=== PATIENT | female | born 1970 | race Caucasian/White ===

== ENCOUNTER 2017-02-13 12:47 | Emergency (ER) | payer OTHER ==
[2017-02-13 13:07] VITALS: BP 148/84
--- NOTE | 2017-02-13 14:56 | UC ---
carol Thrasher Timothy, scribed for Ainsley Fontaine DO on 02/13/17 at 1313 . Palpitation/Dysrhythmia HP - HPI Summary HPI Summary: Citlalli Saldana is a 47 yo female presenting to [facility] with intermittent palpitations for several months at a time without dizziness. Pt states she drinks coffee "all day". She denies any cardiac Hx. She states her palpitations happen mostly at night, but not every night. She also notes that with the episodes she often uses the bathroom and has a lot of gas which she burps out which seems to resolve her Sx, except for last night. She notes that she has had some frontal DAVIS in the 2-3 days ago but all sx have resolved. She has also been trying to loose wt with healthyier food choices and exercise. She has lost 18 pounds in the past 2 months. She denies any other Sx including fevers, chills, eye discharge, N/V/D, abd pain. Her MHx includes migraines, appendectomy , carpal tunnel surgery. Her LNMP was in 04/2016. - History of Current Complaint Stated Complaint: CHEST COMPLAINT SOB Time Seen by Provider: 02/13/17 13:02 Hx Obtained From: Patient Hx Last Menstrual Period: april 2016 Onset/Duration: Sudden Onset, Lasting Weeks, Still Present Timing: Constant Severity Initially: Moderate Severity Currently: Moderate Pain Intensity: 1 Pain Scale Used: 0-10 Numeric Character: Irregular Aggravating Factor(s): Nothing Alleviating Factor(s): Nothing Associated Signs & Symptoms: Positive: Chest Pain, Shortness of Breath. Negative: Dizzy - Allergy/Home Medications Allergies/Adverse Reactions: Allergies Allergy/AdvReac Type Severity Reaction Status Date / Time No Known Allergies Allergy Verified 02/13/17 13:07 PMH/Surg Hx/FS Hx/Imm Hx Previously Healthy: Yes Neurological History: Migraine - Surgical History Surgical History: Yes Surgery Procedure, Year, and Place: APPENDECTOMY, CARPAL TUNNEL - Family History Known Family History: Positive: Cardiac Disease - AFib, Other - pulmonary fibrosis, lung CA, alzheimer's disease - Social History Lives: With Family Alcohol Use: Rare Substance Use Type: None Smoking Status (MU): Never Smoked Tobacco Have You Smoked in the Last Year: No Review of Systems Constitutional: Negative Skin: Negative Eyes: Negative ENT: Negative Respiratory: Negative Cardiovascular: Palpitations Gastrointestinal: Negative Genitourinary: Negative Motor: Negative Neurovascular: Negative Musculoskeletal: Negative Neurological: Headache Psychological: Negative All Other Systems Reviewed And Are Negative: Yes Physical Exam Triage Information Reviewed: Yes Appearance: Well-Appearing, No Pain Distress, Well-Nourished Vital Signs: Initial Vital Signs Temp 98.7 F 02/13/17 13:01 Pulse 55 02/13/17 13:01 Resp 20 02/13/17 13:01 BP 148/84 02/13/17 13:01 Pulse Ox 99 02/13/17 13:01 Vital Signs Reviewed: Yes Eyes: Positive: Conjunctiva Clear. Negative: Discharge ENT Exam: Normal ENT: Positive: Hearing grossly normal. Negative: Muffled/hoarse voice Neck exam: Normal Neck: Positive: Supple Respiratory: Positive: Lungs clear, Normal breath sounds, No respiratory distress Cardiovascular: Positive: No Murmur, Pulses Normal, Brisk Capillary Refill, Bradycardia - sinus Musculoskeletal Exam: Normal Musculoskeletal: Positive: Strength Intact, ROM Intact Neurological: Positive: Alert, Muscle Tone Normal Psychological Exam: Normal Psychological: Positive: Age Appropriate Behavior Skin Exam: Normal Skin: Positive: Other - warm, dry, normal color. Negative: rashes Diagnostics - EKG Cardiac Rate: Bradycardia - 1251: Sinus bradycardia @ 54 BPM, no ST changes Palpitations Course/Dx - Course Course Of Treatment: Citlalli Saldana is a 47 yo female presenting to [facility] with 1/ 10 CP, SOB, and palpitations with Hx of the same for several months at a time. Pt medication list reviewed this visit. Her EKG suggests sinus bradycardia with no ST changes. Note her high BP of 148/84. After clinical examination she will be discharged home with palpitations with appropriate instructions and follow up. - Differential Dx/Diagnosis Differential Diagnosis/HQI/PQRI: Panic Disorder, Paroxymal SVT, Other - palpitations Provider Diagnoses: palpitations Discharge - Discharge Plan Condition: Stable Disposition: HOME Patient Education Materials: Palpitations (ED) Referrals: [facility] [Outside] - 2 Days Jeanne Acuna MD [Medical Doctor] - 2 Days Hawk Bryant MD [Medical Doctor] - 2 Days Additional Instructions: Please follow up with the primary care physician and the senior energy trader provided regarding your visit to urgent care today. Your blood pressure today was 148/84 which is high for your age group, so please follow up with your new primary care physician. Return to urgent care or the emergency department with any new or recurring symptoms. The documentation as recorded by the carol james Timothy accurately reflects the service I personally performed and the decisions made by me, Ainsley Fontaine DO.
== END 2017-02-13 13:51 | disposition home or self-care (01) ==
LOC: UCEAST 12:47
DX: R00.2 Palpitations (principal)
CPT/HCPCS: 93005; 99211; G0463

== ENCOUNTER 2017-03-25 01:13 | Emergency (ER) | payer OTHER ==
--- NOTE | 2017-03-25 02:03 | ED ---
Leon Thrasher Rebecca, scribed for Simba Gannon MD on 03/25/17 at 0143 . Palpitations / Dysrhythmia - HPI Summary HPI Summary: Pt is a 47 y/o F who presents to ED c/o palpitations characterized as fast. 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 Episode lasted less than 1 minute and is currently resolved. Pt reports burping which alleviated sx. Denies any pain or SOB during the pain. Notes intermittent episodes of palpitations that previously occurred once every day but in the last few days they have become less recurrent. No recent changes in caffeine, though reports a recent increase in the pt's stress. - History of Current Complaint Chief Complaint: EDDysrhythmPalp Time Seen by Provider: 03/25/17 01:23 Hx Obtained From: Patient Onset/Duration: Lasting Minutes - Less than 1 minute, Resolved Severity Currently: None Character: Fast Aggravating: Nothing - Allergy/Home Medications Allergies/Adverse Reactions: Allergies Allergy/AdvReac Type Severity Reaction Status Date / Time No Known Allergies Allergy Verified 02/13/17 13:07 PMH/Surg Hx/FS Hx/Imm Hx Endocrine/Hematology History: Denies: Hx Diabetes, Hx Thyroid Disease Cardiovascular History: Denies: Hx Hypertension Respiratory History: Denies: Hx Asthma, Hx Chronic Obstructive Pulmonary Disease (COPD) GI History: Denies: Hx Ulcer - Surgical History Surgery Procedure, Year, and Place: APPENDECTOMY, CARPAL TUNNEL Infectious Disease History: No Infectious Disease History: Denies: Hx Hepatitis, Hx Human Immunodeficiency Virus (HIV), History Other Infectious Disease, Traveled Outside the [place] in Last 30 Days - Family History Known Family History: Positive: Cardiac Disease - AFib, Other - pulmonary fibrosis, lung CA, alzheimer's disease - Social History Alcohol Use: Rare Substance Use Type: Reports: None Smoking Status (MU): Never Smoked Tobacco Have You Smoked in the Last Year: No Review of Systems Positive: Palpitations - resolved Negative: Shortness Of Breath Positive: Other - NEGATIVE: any pain All Other Systems Reviewed And Are Negative: Yes Physical Exam Triage Information Reviewed: Yes Vital Signs On Initial Exam: Initial Vitals Temp Pulse Resp BP Pulse Ox 97 F 78 16 147/84 100 03/25/17 01:14 03/25/17 01:14 03/25/17 01:14 03/25/17 01:14 03/25/17 01:14 Vital Signs Reviewed: Yes Appearance: Positive: Well-Appearing, Well-Nourished Skin: Positive: Warm Head/Face: Positive: Normal Head/Face Inspection ENT: Positive: Hearing grossly normal Neck: Positive: Supple Respiratory/Lung Sounds: Positive: Breath Sounds Present Cardiovascular: Positive: RRR. Negative: Murmur Abdomen Description: Positive: Nontender, Soft Bowel Sounds: Positive: Present Neurological: Positive: Alert, Oriented to Person Place, Time Psychiatric: Positive: Affect/Mood Appropriate Diagnostics - Vital Signs Vital Signs Temp Pulse Resp BP Pulse Ox 03/25/17 01:14 97 F 78 16 147/84 100 - Laboratory Result Diagrams: 03/25/17 02:00 03/25/17 02:00 Lab Statement: Any lab studies that have been ordered have been reviewed, and results considered in the medical decision making process. - Radiology CXR Xray Interpretation: No Acute Changes Radiology Interpretation Completed By: ED Physician - EKG 0253 Cardiac Rate: NL - 64 bpm EKG Rhythm: Sinus Rhythm EKG Interpretation: No acute changes Re-Evaluation - Re-Evaluation First Eval Change: Improved - results d/w pt Course/Dx - Course Assessment/Plan: Pt is a 47 y/o F who presents to ED c/o palpitations characterized as fast. 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 Episode lasted less than 1 minute and is currently resolved. Pt reports burping which alleviated sx. Denies any pain or SOB during the pain. Notes intermittent episodes of palpitations that previously occurred once every day but in the last few days they have become less recurrent. No recent changes in caffeine, though reports a recent increase in the pt's stress. CXR is negative as read by ED physician. EKG is sinus rhythm with no acute changes. Troponin of 0.01. Pt will be D/C to home with palpitations and a follow up with her PCP. She understands and agrees. Elevated BP noted and advised to f/u with PCP. - Diagnoses Provider Diagnoses: Palpitations Discharge - Discharge Plan Condition: Stable Disposition: HOME Patient Education Materials: Palpitations (ED) Referrals: Genevieve Gordillo NP [Primary Care Provider] - 2 Days The documentation as recorded by the scribeLeon Rebecca accurately reflects the service I personally performed and the decisions made by me, Simba Gannon MD.
[2017-03-25 02:14] LABS: Hematocrit 41 % (35-47); Hemoglobin 13.6 g/dl (12.0-16.0); Mean Corpuscular HGB Conc 33 g/dl (31-36); Mean Corpuscular Hemoglobin 29 pg (27-31); Mean Corpuscular Volume 87 fL (80-97); Mean Platelet Volume 8 um3 (7.4-10.4); Red Blood Count 4.64 10^6/ul (4.0-5.4); Red Cell Distribution Width 13 % (10.5-15); White Blood Count 8.2 10^3/ul (3.5-10.8)
[2017-03-25 02:26] LABS: Albumin 4.5 g/dL (3.2-5.2); BUN/Creatinine Ratio 35.5 (8-20); Calcium 9.3 mg/dL (8.6-10.3); EGFR African American 105.8 (>60); EGFR Non-African American 82.3 (>60); Globulin 2.5 g/dL (2-4); Potassium 3.2 mmol/L (3.5-5.0); Total Bilirubin 0.5 mg/dL (0.2-1.0)
[2017-03-25 02:29] LABS: Troponin I 0.01 ng/mL (<0.04)
[2017-03-25 03:10] VITALS: BP 115/61
[2017-03-25 03:10] LABS: TSH (Thyroid Stimulating Horm) 3.41 mcIU/mL (0.34-5.60)
--- NOTE | 2017-03-25 07:39 | RAD ---
INDICATION: Palpitations. COMPARISON: There are no prior studies available for comparison. TECHNIQUE: Dual-energy PA and lateral views of the chest were obtained. FINDINGS: The heart is within normal limits in size. Mediastinal and hilar contours appear within normal limits. The lungs are clear. No pleural effusion is present. IMPRESSION: NO EVIDENCE FOR ACTIVE CARDIOPULMONARY DISEASE.
== END 2017-03-25 03:17 | disposition home or self-care (01) ==
LOC: ED 01:13
DX: R00.2 Palpitations (principal)
CPT/HCPCS: 36415; 71020; 80053; 83605; 83735; 84443; 84484; 84702; 85025; 93005; 99282

== ENCOUNTER 2017-03-28 14:03 | Emergency (ER) | payer OTHER ==
[2017-03-28 14:18] VITALS: BP 133/77
--- NOTE | 2017-03-28 15:10 | UC ---
Skin Complaint HPI - HPI Summary HPI Summary: 47 y/o female with increase stress recently and GI bug noticed past 2 days neuropathy down R leg x 24 hours, resolved now with increased sensation/ pain over R flank radiationg to right abdomen, noted small robles over right spine this AM, concnered about shingles. no prior history, no meds. no PMH. + chicken pox as child. 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 Hx Last Menstrual Period: tubal ?: No Onset/Duration: Sudden Onset, Lasting Days Onset Severity: Mild Current Severity: Mild - Allergy/Home Medications Allergies/Adverse Reactions: Allergies Allergy/AdvReac Type Severity Reaction Status Date / Time No Known Allergies Allergy Verified 03/28/17 14:17 Review of Systems Skin: Rash Musculoskeletal: Arthralgia All Other Systems Reviewed And Are Negative: Yes PMH/Surg Hx/FS Hx/Imm Hx Previously Healthy: Yes - Surgical History Surgical History: Yes Surgery Procedure, Year, and Place: APPENDECTOMY, CARPAL TUNNEL - Family History Known Family History: Positive: None, Cardiac Disease - AFib, Other - pulmonary fibrosis, lung CA, alzheimer's disease - Social History Alcohol Use: None Substance Use Type: None Smoking Status (MU): Never Smoked Tobacco Have You Smoked in the Last Year: No Physical Exam Triage Information Reviewed: Yes Appearance: Well-Appearing, No Pain Distress, Well-Nourished Vital Signs: Initial Vital Signs Temp 99.1 F 03/28/17 14:11 Pulse 68 03/28/17 14:11 Resp 16 03/28/17 14:11 BP 133/77 03/28/17 14:11 Pulse Ox 99 03/28/17 14:11 Vital Signs Reviewed: Yes Abdomen Description: Positive: No Organomegaly, Soft, Other: - tenderness extending in band region from ~ l1 region to umbilcal region with small vesiclar lesions near spine on R dotting through abdomen in band like distribution, + mild erythema. Course/Dx - Course Course Of Treatment: herpes zoster, antiviral given, f/u with PCP avoid contact with immunocompromised patients. - Differential Diagnoses - Skin Complaint Differential Diagnoses: Angioedema, Cellulitis, Contact Dermatitis, Drug Rash, Poison Silvina, Urticaria - Diagnoses Provider Diagnoses: herpes zoster Discharge - Discharge Plan Condition: Stable Disposition: HOME Prescriptions: ValACYclovir (*) [Valtrex 1 GM(*)] 1 gm PO TID #21 tab Patient Education Materials: Shingles (ED), Valacyclovir (By mouth) Referrals: Gneevieve Gordillo NP [Primary Care Provider] - Additional Instructions: - Avoid women, babies, and immunocompromised people. - Take antiviral medication as directed - Cover areas while working/ exposed to people. - Follow up with PCP with increased symptoms - Motrin/ Tylenol as needed for pain
== END 2017-03-28 15:17 | disposition home or self-care (01) ==
LOC: UCEAST 14:03
DX: B02.9 Zoster without complications (principal)
CPT/HCPCS: 99212; G0463

== ENCOUNTER 2017-10-07 09:07 | Emergency (ER) | payer BC, OTHER ==
[2017-10-07 09:25] VITALS: BP 140/91
--- NOTE | 2017-10-07 09:42 | UC ---
FLU HPI - HPI Summary HPI Summary: c/o flu like symptoms with fever, chills,malaise and dry cough for the past 2 days. She states she also had burping and some constipation the day the symptoms began. Denies nausea or vomiting. LMD may 2016, denies hot flashes - History of Current Complaint Stated Complaint: FLU SYMPTOMS Time Seen by Provider: 10/07/17 09:15 Hx Last Menstrual Period: tubal - Allergy/Home Medications Allergies/Adverse Reactions: Allergies Allergy/AdvReac Type Severity Reaction Status Date / Time No Known Allergies Allergy Verified 10/07/17 09:25 Home Medications: Home Medications Ibuprofen 400 mg PO Q6H PRN 10/07/17 [History Confirmed 10/07/17] PMH/Surg Hx/FS Hx/Imm Hx Previously Healthy: Yes - Surgical History Surgical History: Yes Surgery Procedure, Year, and Place: APPENDECTOMY, CARPAL TUNNEL - Family History Known Family History: Positive: None, Cardiac Disease - AFib, Other - pulmonary fibrosis, lung CA, alzheimer's disease - Social History Alcohol Use: None Substance Use Type: None Smoking Status (MU): Never Smoked Tobacco Have You Smoked in the Last Year: No Review of Systems Constitutional: Fever, Chills, Fatigue Respiratory: Cough All Other Systems Reviewed And Are Negative: Yes Physical Exam Triage Information Reviewed: Yes Appearance: Ill-Appearing, Obese Vital Signs Reviewed: Yes Eyes: Positive: Conjunctiva Clear ENT: Positive: Hearing grossly normal, Pharynx normal, TMs normal, Uvula midline Neck exam: Normal Neck: Positive: Supple, Nontender, No Lymphadenopathy Respiratory: Positive: Chest non-tender, Lungs clear, Normal breath sounds, No respiratory distress Cardiovascular: Positive: RRR, No Murmur, Pulses Normal, Brisk Capillary Refill Abdomen Description: Positive: Nontender Bowel Sounds: Positive: Present Flu Course/Dx - Course Course Of Treatment: continue rest and oral hydration, tylenol prn. D/w patient negative results of influenza test. Patient's partner states he has pantoprazole 20mg and colace at home. f/u PCP - Differential Dx/Diagnosis Provider Diagnoses: viral URI Discharge - Discharge Plan Condition: Stable Disposition: HOME Patient Education Materials: Viral Syndrome (ED) Referrals: Genevieve Gordillo NP [Primary Care Provider] -
== END 2017-10-07 10:09 | disposition home or self-care (01) ==
LOC: UCEAST 09:07
DX: J06.9 Acute upper respiratory infection, unspecified (principal)
CPT/HCPCS: 87502; 99212; G0463

== ENCOUNTER 2017-10-25 22:14 | Emergency (ER) | payer BC, OTHER ==
[2017-10-25 22:56] LABS: ABS Basophils 0.1 10^3/ul (0-0.2); ABS Eosinophils 0.1 10^3/ul (0-0.6); ABS Lymphocytes 2.2 10^3/ul (1.0-4.8); ABS Monocytes 0.8 10^3/ul (0-0.8); ABS Neutrophils 5.6 10^3/ul (1.5-7.7); ABS Nucleated RBC 0 10^3/ul; Eosinophil % 1.4 % (0-6); Hematocrit 40 % (35-47); Hemoglobin 13.5 g/dl (12.0-16.0); Lymphocyte % 25.6 % (25-47); Mean Corpuscular HGB Conc 34 g/dl (31-36); Mean Corpuscular Hemoglobin 30 pg (27-31); Mean Corpuscular Volume 87 fL (80-97); Mean Platelet Volume 8.3 um3 (7.4-10.4); Nucleated Red Blood Cells % 0; Platelet Count 268 10^3/ul (150-450); Red Blood Count 4.54 10^6/ul (4.0-5.4); Red Cell Distribution Width 13 % (10.5-15); White Blood Count 8.7 10^3/ul (3.5-10.8)
[2017-10-25 23:16] LABS: EGFR Non-African American 78.7 (>60)
--- NOTE | 2017-10-25 23:32 | ED ---
Palpitations / Dysrhythmia - HPI Summary HPI Summary: 47-year-old female presents with heart palpitations after going up stairs today. She was very anxious at the time. Shortness breath with the. She denies any chest pain. She states that she has a history of this and normally when she burps the palpitations go away. States she tried burping and it did not resolve the palpitations. She states she has had a Holter monitor last week and it was normal. She states that her primary has scheduled an echo. She states what was different about this episode is it was not relieved with burping. She denies any palpitations at this time. She denies any bowel pain, nausea or vomiting. She has been on ranitidine for the past week and has noticed some improvement. Patient states that she has had an abnormal work scheduled for the past year and that has really caused increase stress. - History of Current Complaint Chief Complaint: EDDysrhythmPalp Time Seen by Provider: 10/25/17 22:31 - Allergy/Home Medications Allergies/Adverse Reactions: Allergies Allergy/AdvReac Type Severity Reaction Status Date / Time No Known Allergies Allergy Verified 10/25/17 22:20 Home Medications: Home Medications Ranitidine TAB (NF) [Zantac TAB (NF)] 150 mg PO BID 10/25/17 [History Confirmed 10/25/17] PMH/Surg Hx/FS Hx/Imm Hx Endocrine/Hematology History: Denies: Hx Diabetes, Hx Thyroid Disease Cardiovascular History: Denies: Hx Hypertension Respiratory History: Denies: Hx Asthma, Hx Chronic Obstructive Pulmonary Disease (COPD) GI History: Denies: Hx Ulcer - Surgical History Surgery Procedure, Year, and Place: APPENDECTOMY, CARPAL TUNNEL - Immunization History Date of Tetanus Vaccine: utd Date of Influenza Vaccine: none Infectious Disease History: No Infectious Disease History: Reports: Hx Shingles Denies: Hx Hepatitis, Hx Human Immunodeficiency Virus (HIV), History Other Infectious Disease, Traveled Outside the [place] in Last 30 Days - Family History Known Family History: Positive: None, Cardiac Disease - AFib, Other - pulmonary fibrosis, lung CA, alzheimer's disease - Social History Alcohol Use: None Substance Use Type: Reports: None Smoking Status (MU): Former Smoker Have You Smoked in the Last Year: No Review of Systems Negative: Fever Positive: Palpitations. Negative: Chest Pain Positive: Shortness Of Breath. Negative: Cough All Other Systems Reviewed And Are Negative: Yes Physical Exam Triage Information Reviewed: Yes Vital Signs On Initial Exam: Initial Vitals Temp Pulse Resp BP Pulse Ox 98.8 F 80 16 155/88 100 10/25/17 22:16 10/25/17 22:16 10/25/17 22:16 10/25/17 22:16 10/25/17 22:16 Vital Signs Reviewed: Yes Appearance: Positive: Well-Appearing Skin: Positive: Warm, Dry Head/Face: Positive: Normal Head/Face Inspection Eyes: Positive: Normal, EOMI, OMAIRA, Conjunctiva Clear ENT: Positive: Normal ENT inspection, Pharynx normal, TMs normal Respiratory/Lung Sounds: Positive: Clear to Auscultation, Breath Sounds Present Cardiovascular: Positive: Normal, RRR Abdomen Description: Positive: Nontender, Soft Bowel Sounds: Positive: Present Musculoskeletal: Positive: Normal Neurological: Positive: Normal Psychiatric: Positive: Normal Diagnostics - Vital Signs Vital Signs Temp Pulse Resp BP Pulse Ox 10/25/17 22:32 75 10 99 10/25/17 22:31 151/83 10/25/17 22:16 98.8 F 80 16 155/88 100 - Laboratory Lab Results: Lab Results 10/25/17 10/25/17 10/25/17 Range/Units 22:40 22:40 22:40 WBC 8.7 (3.5-10.8) 10^3/ul RBC 4.54 (4.0-5.4) 10^6/ul Hgb 13.5 (12.0-16.0) g/dl Hct 40 (35-47) % MCV 87 (80-97) fL MCH 30 (27-31) pg MCHC 34 (31-36) g/dl RDW 13 (10.5-15) % Plt Count 268 (150-450) 10^3/ul MPV 8.3 (7.4-10.4) um3 Neut % (Auto) 63.6 (38-83) % Lymph % (Auto) 25.6 (25-47) % Jefferson % (Auto) 8.6 H (0-7) % Eos % (Auto) 1.4 (0-6) % Baso % (Auto) 0.8 (0-2) % Absolute Neuts (auto) 5.6 (1.5-7.7) 10^3/ul Absolute Lymphs (auto) 2.2 (1.0-4.8) 10^3/ul Absolute Monos (auto) 0.8 (0-0.8) 10^3/ul Absolute Eos (auto) 0.1 (0-0.6) 10^3/ul Absolute Basos (auto) 0.1 (0-0.2) 10^3/ul Absolute Nucleated RBC 0 10^3/ul Nucleated RBC % 0 D-Dimer, Quantitative (Less Than 230) ng/mL Sodium 139 (139-145) mmol/L Potassium 3.7 (3.5-5.0) mmol/L Chloride 102 (101-111) mmol/L Carbon Dioxide 30 (22-32) mmol/L Anion Gap 7 (2-11) mmol/L BUN 21 (6-24) mg/dL Creatinine 0.79 (0.51-0.95) mg/dL Est GFR ( Amer) 101.2 (>60) Est GFR (Non-Af Amer) 78.7 (>60) BUN/Creatinine Ratio 26.6 H (8-20) Glucose 99 (70-100) mg/dL Calcium 9.6 (8.6-10.3) mg/dL Magnesium 2.2 (1.9-2.7) mg/dL Total Bilirubin 0.40 (0.2-1.0) mg/dL AST 12 L (13-39) U/L ALT 10 (7-52) U/L Alkaline Phosphatase 84 (34-104) U/L Troponin I 0.00 (<0.04) ng/mL B-Natriuretic Peptide 20 ( - 100) pg/mL Total Protein 7.1 (6.4-8.9) g/dL Albumin 4.5 (3.2-5.2) g/dL Globulin 2.6 (2-4) g/dL Albumin/Globulin Ratio 1.7 (1-3) TSH Pending Beta HCG, Quant 2.88 mIU/mL 10/25/17 Range/Units 22:40 WBC (3.5-10.8) 10^3/ul RBC (4.0-5.4) 10^6/ul Hgb (12.0-16.0) g/dl Hct (35-47) % MCV (80-97) fL MCH (27-31) pg MCHC (31-36) g/dl RDW (10.5-15) % Plt Count (150-450) 10^3/ul MPV (7.4-10.4) um3 Neut % (Auto) (38-83) % Lymph % (Auto) (25-47) % Jefferson % (Auto) (0-7) % Eos % (Auto) (0-6) % Baso % (Auto) (0-2) % Absolute Neuts (auto) (1.5-7.7) 10^3/ul Absolute Lymphs (auto) (1.0-4.8) 10^3/ul Absolute Monos (auto) (0-0.8) 10^3/ul Absolute Eos (auto) (0-0.6) 10^3/ul Absolute Basos (auto) (0-0.2) 10^3/ul Absolute Nucleated RBC 10^3/ul Nucleated RBC % D-Dimer, Quantitative 226 (Less Than 230) ng/mL Sodium (139-145) mmol/L Potassium (3.5-5.0) mmol/L Chloride (101-111) mmol/L Carbon Dioxide (22-32) mmol/L Anion Gap (2-11) mmol/L BUN (6-24) mg/dL Creatinine (0.51-0.95) mg/dL Est GFR ( Amer) (>60) Est GFR (Non-Af Amer) (>60) BUN/Creatinine Ratio (8-20) Glucose (70-100) mg/dL Calcium (8.6-10.3) mg/dL Magnesium (1.9-2.7) mg/dL Total Bilirubin (0.2-1.0) mg/dL AST (13-39) U/L ALT (7-52) U/L Alkaline Phosphatase (34-104) U/L Troponin I (<0.04) ng/mL B-Natriuretic Peptide ( - 100) pg/mL Total Protein (6.4-8.9) g/dL Albumin (3.2-5.2) g/dL Globulin (2-4) g/dL Albumin/Globulin Ratio (1-3) TSH Beta HCG, Quant mIU/mL Result Diagrams: 10/25/17 22:40 10/25/17 22:40 Lab Statement: Any lab studies that have been ordered have been reviewed, and results considered in the medical decision making process. - Radiology chest Xray Interpretation: No Acute Changes Radiology Interpretation Completed By: ED Physician - EKG No standard instances Cardiac Rate: NL EKG Rhythm: Sinus Rhythm EKG Interpretation: normal sinus rhythm Re-Evaluation - Re-Evaluation First Eval Re-Evaluation Time: 00:35 Change: Improved Comment: no longer anxious and no palpitations Course/Dx - Course Course Of Treatment: 47-year-old female presents with heart palpitations after going up stairs today. She was very anxious at the time. Shortness breath with the. She denies any chest pain. She states that she has a history of this and normally when she burps the palpitations go away. States she tried burping and it did not resolve the palpitations. She states she has had a Holter monitor last week and it was normal. She states that her primary has scheduled an echo. She states what was different about this episode is it was not relieved with burping. She denies any palpitations at this time. She denies any bowel pain, nausea or vomiting. She has been on ranitidine for the past week and has noticed some improvement. On exam lungs clear to auscultation. Heart regular rhythm. EKG normal. Chest x-ray normal. labs wnl. Will have continue to follow up with primary. will have follow up with primary about blood pressure. Patient understands agrees with plan. - Diagnoses Differential Diagnosis/HQI/PQRI: Positive: Hypokalemia, Panic Disorder, Pulmonary Embolism Provider Diagnoses: Palpitation, Elevated blood pressure reading Discharge - Sign-Out/Discharge Documenting (check all that apply): Discharge - Discharge Plan Condition: Good Disposition: HOME Patient Education Materials: Heart Palpitations (ED) Referrals: Belem Garces MD [Primary Care Provider] - Additional Instructions: Follow up with primary within 5 days Return to ED if develop any new or worsening symptoms - Billing Disposition and Condition Condition: GOOD Disposition: HOME
[2017-10-25] MEDS ORDERED: Al Hydrox/Mg Hydrox/Simet LIQ* 30 ML UDC PO ONE (23:53)
[2017-10-26 00:48] VITALS: BP 139/77
--- NOTE | 2017-10-26 07:13 | RAD ---
INDICATION: Palpitations. COMPARISON: Comparison is made with prior study from March 25, 2017. TECHNIQUE: Dual-energy PA and lateral views of the chest were obtained. FINDINGS: The heart is within normal limits in size. Mediastinal and hilar contours appear within normal limits. The lungs are clear. No pleural effusion is present. IMPRESSION: NO EVIDENCE FOR ACTIVE CARDIOPULMONARY DISEASE.
== END 2017-10-26 00:48 | disposition home or self-care (01) ==
LOC: ED 22:14
DX: R00.2 Palpitations (principal); Z87.891 Personal history of nicotine dependence; R06.02 Shortness of breath; R03.0 Elevated blood-pressure reading, without diagnosis of hypertension
CPT/HCPCS: 36415; 71046; 80053; 83735; 83880; 84443; 84484; 84702; 85025; 85379; 93005; 99282; A9270-GY

== ENCOUNTER 2018-01-01 11:28 | Emergency (ER) | payer BC, MEDICAID ==
[2018-01-01 11:53] VITALS: BP 159/77
--- NOTE | 2018-01-01 12:28 | UC ---
Complaint Female HPI - HPI Summary HPI Summary: 47 y/o female presents to the urgent care c/o vaginal spotting that started Last Monday12/29/2017. Pt reports she after she goes to the bathroom she wipes herself and see mild pink color in the toilet paper. Pt reports LMP was on 05/2016. She is not sure if this is her menstrual cycle since she though she was menopausal. Last time seen [facility] was in 2014. Pt states mild cramping pelvic pressure and feels her breast tender and feels engorged. Pt denies fever, abdominal pain, SOB, chest pain, N/V/D, Hx of STDs'. Last PAP was 2014 and negative. - History Of Current Complaint Chief Complaint: UCGeneralIllness Stated Complaint: VAGINAL SPOTTING Time Seen by Provider: 01/01/18 12:26 Hx Obtained From: Patient Hx Last Menstrual Period: may 2016 ?: No - Hx of B/L tubal ligation Onset/Duration: Gradual Onset, Lasting Days - 3 days, Still Present Timing: Constant Severity Initially: Mild Severity Currently: Mild Pain Intensity: 0 Pain Scale Used: 0-10 Numeric Character: Cramping - pelvic pressure Aggravating Factor(s): Nothing Alleviating Factor(s): Nothing Associated Signs And Symptoms: Positive: Vaginal Bleeding/Discharge. Negative: Fever, Back Pain, Nausea, Vomiting(# Of Episodes =), Genital Swelling, Genital Blisters Related Hx: - 4, Para - 3 abortions 1 - Risk Factors Ectopic Risk Factor: Negative Ovarian Torsion Risk Factor: Tubal Ligation - Allergies/Home Medications Allergies/Adverse Reactions: Allergies Allergy/AdvReac Type Severity Reaction Status Date / Time No Known Allergies Allergy Verified 01/01/18 11:54 Home Medications: Home Medications NK [No Home Medications Reported] 01/01/18 [History Confirmed 01/01/18] PMH/Surg Hx/FS Hx/Imm Hx Previously Healthy: Yes - Pt denies PMHX - Surgical History Surgical History: Yes Surgery Procedure, Year, and Place: APPENDECTOMY, CARPAL TUNNEL - Family History Known Family History: Positive: Cardiac Disease - AFib, Other - pulmonary fibrosis, lung CA, alzheimer's disease - Social History Occupation: Employed Full-time Lives: With Family Alcohol Use: None Substance Use Type: None Smoking Status (MU): Former Smoker Have You Smoked in the Last Year: No Review of Systems Constitutional: Negative Skin: Negative Eyes: Negative ENT: Negative Respiratory: Negative Cardiovascular: Negative Gastrointestinal: Negative Genitourinary: Abnormal Bleeding Motor: Negative Neurovascular: Negative Musculoskeletal: Negative Neurological: Negative Psychological: Negative Is Patient Immunocompromised?: No All Other Systems Reviewed And Are Negative: Yes Physical Exam - Summary Physical Exam Summary: Vital signs: reviewed General: well developed, well nourished female sitting in the examining table w /o any acute distress. Head: Normocephalic, no lesions. Eyes: PERRLA, EOM's full, conjunctiva clear, fundi grossly normal. Ears: EAC's clear, TM's normal. Nose: Mucosa normal, no obstruction. Throat: Clear, no exudates, no lesions. Neck: Supple, no masses, no thyromegaly, no bruits. Chest: Lungs clear, no rales, no rhonchi, no wheezes. Heart: RR, no murmurs, no rubs, no gallops. Abdomen: Soft, no tenderness, no masses, BS normal. : Normal, no lesions, no discharge, no hernias noted. Pelvic: I was assisted by nurse Lolita. External genitalia within normal limits. There is no lesions there is no masses noted. Speculum exam: The vaginal winslow are within normal limits w/ mild vaginal bleeding, no the lesions or rashes. The cervix is closed with no lesions or masses and mild uterine bleeding coming out of the os. There is no CMT's, and no adnexal masses. Rectal: No lesions, no hemorrhoids, Back: Normal curvature, no tenderness. Extremities: FROM, no deformities, no edema, no erythema. Neuro: Physiological, no localizing findings. Skin: Normal, no rashes, no lesions noted. Triage Information Reviewed: Yes Vital Signs: Initial Vital Signs Temp 98.7 F 01/01/18 11:50 Pulse 62 01/01/18 11:50 Resp 16 01/01/18 11:50 BP 159/77 01/01/18 11:50 Pulse Ox 98 01/01/18 11:50 Complaint Female Dx - Course Course Of Treatment: 47 y/o female presents to the urgent care c/o vaginal spotting that started Last Monday12/29/2017. Pt reports she after she goes to the bathroom she wipes herself and see mild pink color in the toilet paper. Pt reports LMP was on 05/2016. She is not sure if this is her menstrual cycle since she though she was menopausal. Last time seen [facility] was in 2014. Pt states mild cramping pelvic pressure and feels her breast tender and feels engorged. Pt denies fever, abdominal pain, SOB, chest pain, N/V/D, Hx of STDs'. Last PAP was 2014 and negative. Pelvic examination done and it is probably that Pt is w/ her menses on examination. UA and ordered. UA: negative , test: negative. Pt probably w/ Dysfunctional uterine bleeding and needs hormal testing and pelvic US. Pt advised this is probably her menses and given a referal w/ [facility] DR Eng for further management. Pt was educated on Dysfunctional uterine bleeding. D/C instructions explained. Pt's BP is elevated today advised to decrease salt in diet, monitor BP and f/u with PCP for further management. Pt understood and agreed w/ plan of care. Pt left the clinic hemodynamically stable A&OX3. - Differential Dx/Diagnosis Differential Diagnosis/HQI/PQRI: Cervicitis, Endometriosis, Pelvic Inflammatory Disease, , Renal Colic, Urinary Tract Infection, Other - Dysfunctional uterirne bleeding Provider Diagnoses: 1- Dysfunctional utrine bleeding. 2- Elevated BP w/o Hx of HTN Discharge - Sign-Out/Discharge Documenting (check all that apply): Discharge/Admit/Transfer - D/C home - Discharge Plan Condition: Stable Disposition: HOME Patient Education Materials: Dysfunctional Uterine Bleeding (ED), Low-Sodium Diet (ED) Referrals: Belem Garces MD [Primary Care Provider] - 3 Days Cecilia Eng MD [Medical Doctor] - 2 Days Additional Instructions: 1-Please f/u with [facility] DR Eng for further evaluation and treatment on your abnormal uterine bleeding. 2- UA and test were negative 3- If you develop severe vaginal bleeding and severe pelvic pain please go immediately to the ER for further management 4-Your BP is elevated today. please decrease salt in your diet, monitor BP and if it continues to be elevated please f/u with your PCP for further management - Billing Disposition and Condition Condition: STABLE Disposition: Home
== END 2018-01-01 13:09 | disposition home or self-care (01) ==
LOC: UCEAST 11:28
DX: N93.8 Other specified abnormal uterine and vaginal bleeding (principal); R03.0 Elevated blood-pressure reading, without diagnosis of hypertension; Z32.02 Encounter for pregnancy test, result negative; Z87.891 Personal history of nicotine dependence; Z82.49 Family history of ischemic heart disease and other diseases of the circulatory system; Z83.6 Family history of other diseases of the respiratory system; Z80.1 Family history of malignant neoplasm of trachea, bronchus and lung; Z82.0 Family history of epilepsy and other diseases of the nervous system
CPT/HCPCS: 81003; 84702; 99212; G0463

== ENCOUNTER 2018-06-29 07:46 | Emergency (ER) | payer BC, MEDICAID, OTHER ==
--- NOTE | 2018-06-29 08:15 | UC ---
UC General HPI - HPI Summary HPI Summary: 48 yo female c/o sudden unrelenting left sided back pain. Leaned down to pick something up on a lower shelf and felt a sudden unusual pain. Pain progressively worse since then. Has taken ibuprofen, used a tens unit ( household member), icy hot without relief. No b/b issues. Very painful to move left leg. No raphael paresthesias, dysesthesias. Pain starts mid low back and extends up to left back. Remote low back issue apprx 20+ years ago, but not like this. Typically healthy. Post menopausal. - History of Current Complaint Chief Complaint: UCBackPain Stated Complaint: BACK INJURY Time Seen by Provider: 06/29/18 08:03 Hx Obtained From: Patient, Family/Under Seal Operator Hx Last Menstrual Period: may 2016 Pain Intensity: 9 - Allergy/Home Medications Allergies/Adverse Reactions: Allergies Allergy/AdvReac Type Severity Reaction Status Date / Time No Known Allergies Allergy Verified 06/29/18 08:01 Home Medications: Home Medications Ibuprofen 400 mg PO ONCE PRN 06/29/18 [History Confirmed 06/29/18] PMH/Surg Hx/FS Hx/Imm Hx Previously Healthy: Yes - Surgical History Surgical History: Yes Surgery Procedure, Year, and Place: APPENDECTOMY, CARPAL TUNNEL - Family History Known Family History: Positive: None, Cardiac Disease - AFib, Other - pulmonary fibrosis, lung CA, alzheimer's disease - Social History Alcohol Use: Rare Substance Use Type: None Smoking Status (MU): Former Smoker Have You Smoked in the Last Year: No Review of Systems All Other Systems Reviewed And Are Negative: Yes Constitutional: Positive: Other - see hpi Skin: Positive: Negative Eyes: Positive: Negative ENT: Positive: Negative Respiratory: Positive: Negative Cardiovascular: Positive: Negative Gastrointestinal: Positive: Negative Genitourinary: Positive: Negative Motor: Positive: Other - see hpi Neurovascular: Positive: Other - see hpi Musculoskeletal: Positive: Other: - see hpi Psychological: Positive: Negative Is Patient Immunocompromised?: No Physical Exam Triage Information Reviewed: Yes Appearance: Well-Nourished, Pain Distress Vital Signs: Initial Vital Signs Temp 98.7 F 06/29/18 07:56 Pulse 80 06/29/18 07:56 Resp 20 06/29/18 07:56 BP 180/104 06/29/18 07:56 Pulse Ox 100 06/29/18 07:56 Vital Signs Reviewed: Yes Eye Exam: Normal ENT Exam: Normal Neck exam: Normal Neck: Positive: Supple, Nontender Respiratory Exam: Normal Respiratory: Positive: Chest non-tender, Lungs clear, Normal breath sounds, No respiratory distress, No accessory muscle use Cardiovascular Exam: Normal Cardiovascular: Positive: RRR, No Murmur, Pulses Normal, Brisk Capillary Refill Abdominal Exam: Normal Abdomen Description: Positive: Nontender Musculoskeletal Exam: Other - Tender mid low back. Not directly over cva region. No crepitus. + spasm lumbar region R>L Neurological Exam: Normal Psychological Exam: Normal Skin Exam: Normal - no visible or reported rash or bruise nondiaphoretic Course/Dx - Course Course Of Treatment: Reviewed urine dip. Reviewed CT results. Reviewed results with pt. Reviewed coa / tx plan. Ms. Saldana and her survey rodman were given the opportunity to ask several insightful questions, to which I answered to the best of my ability. Reviewed need for close follow up and immediate evaluation if worse or new problems. - Diagnoses Provider Diagnosis: Acute low back pain, Disc degeneration, Arthritis Discharge - Sign-Out/Discharge Documenting (check all that apply): Patient Departure All imaging exams completed and their final reports reviewed: Yes - Discharge Plan Condition: Stable Disposition: HOME Prescriptions: Hydrocodone/Acetaminophen [[place] 5-325 Tablet] 1 each PO Q6HR #24 tablet MDD 8 predniSONE TAB* [Deltasone 10 MG TAB*] 10 mg PO DAILY #17 tab Patient Education Materials: Acute Low Back Pain (ED), Degenerative Disc Disease (ED) Forms: *Work Release Referrals: Belem Garces MD [Primary Care Provider] - Additional Instructions: Please follow up with your primary care physician early next week. Seek medical attention for worse or new problems. Rest. Drink plenty of water. Do not drive, drink alcohol, or operate heavy machinery while you are taking pain medications. Consider Glucosamine chondroitin complex (review packaging prior to starting) - Billing Disposition and Condition Condition: STABLE Disposition: Home
[2018-06-29] MEDS ORDERED: HYDROcodone/ACETAMIN 5-325 MG* 1 TAB PO ONE (08:27)
[2018-06-29 09:53] VITALS: BP 149/99
== END 2018-06-29 10:50 | disposition home or self-care (01) ==
LOC: UCEAST 07:46
DX: M54.5 Low back pain (principal); M51.36 Other intervertebral disc degeneration, lumbar region; M47.816 Spondylosis without myelopathy or radiculopathy, lumbar region
CPT/HCPCS: 72128; 72131; 81003; 99212; G0463

== ENCOUNTER 2019-02-02 11:43 | Emergency (ER) | payer BC ==
--- NOTE | 2019-02-02 12:44 | ED ---
Syncope/Near Syncope - HPI Summary HPI Summary: Pt is a 49 y/o F presenting to the ED with a chief complaint of a near syncope. She states she was standing at work this morning when she suddenly felt her heart beat irregular, like it stopped for a moment. She states she was starting to lose her vision, hearing, and was dizzy, but did not lose consciousness. She states it only lasted about 30 seconds, and she was fine this morning. - History Of Current Complaint Chief Complaint: EDDizziness Time Seen by Provider: 02/02/19 12:30 Hx Obtained From: Patient Onset/Duration: Sudden Onset, Resolved Timing: Seconds Activity At Onset: Other - standing Associated Head Trauma: No Aggravating Factor(s): Nothing Alleviating Factor(s): Spontaneous Resolution Associated Signs And Symptoms: Dizzy - Allergies/Home Medications Allergies/Adverse Reactions: Allergies Allergy/AdvReac Type Severity Reaction Status Date / Time No Known Allergies Allergy Verified 02/02/19 11:54 PMH/Surg Hx/FS Hx/Imm Hx Previously Healthy: Yes Endocrine/Hematology History: Denies: Hx Diabetes, Hx Thyroid Disease Cardiovascular History: Denies: Hx Hypertension Respiratory History: Denies: Hx Asthma, Hx Chronic Obstructive Pulmonary Disease (COPD) GI History: Denies: Hx Ulcer - Surgical History Surgery Procedure, Year, and Place: APPENDECTOMY, CARPAL TUNNEL - Immunization History Date of Tetanus Vaccine: utd Date of Influenza Vaccine: none Infectious Disease History: No Infectious Disease History: Reports: Hx Shingles Denies: Hx Hepatitis, Hx Human Immunodeficiency Virus (HIV), History Other Infectious Disease, Traveled Outside the [place] in Last 30 Days - Family History Known Family History: Positive: Cardiac Disease - AFib, Other - pulmonary fibrosis, lung CA, alzheimer's disease - Social History Alcohol Use: Rare Hx Substance Use: No Substance Use Type: Reports: None Hx Tobacco Use: Yes Smoking Status (MU): Former Smoker Have You Smoked in the Last Year: No Review of Systems Positive: Blurred Vision Neurological: Other - dizziness Positive: Syncope - near syncope All Other Systems Reviewed And Are Negative: Yes Physical Exam - Summary Physical Exam Summary: Appearance: The patient is well-nourished in no acute distress and in no acute pain. Skin: The skin is warm and dry and skin color reflects adequate perfusion. HEENT: The head is normocephalic and atraumatic. The pupils are equal and reactive. The conjunctivae are clear and without drainage. Nares are patent and without drainage. Mouth reveals moist mucous membranes and the throat is without erythema and exudate. The external ears are intact. The ear canals are patent and without drainage. The tympanic membranes are intact. Neck: The neck is supple with full range of motion and non-tender. There are no carotid bruits. There is no neck vein distension. Respiratory: Chest is non-tender. Lungs are clear to auscultation and breath sounds are symmetrical and equal. Cardiovascular: Heart is regular rate and rhythm. There is no murmur or rub auscultated. There is no peripheral edema and pulses are symmetrical and equal. Abdomen: The abdomen is soft and non-tender. There are normal bowel sounds heard in all four quadrants and there is no organomegaly palpated. Musculoskeletal: There is no back tenderness noted. Extremities are non-tender with full range of motion. There is good capillary refill. There is no peripheral edema or calf tenderness elicited. Neurological: Patient is alert and oriented to person, place and time. The patient has symmetrical motor strength in all four extremities. Cranial nerves are grossly intact. Deep tendon reflexes are symmetrical and equal in all four extremities. Psychiatric: The patient has an appropriate affect and does not exhibit any anxiety or depression. Triage Information Reviewed: Yes Vital Signs On Initial Exam: Initial Vitals Temp Pulse Resp BP Pulse Ox 98.9 F 64 18 144/84 99 02/02/19 11:51 02/02/19 11:51 02/02/19 11:51 02/02/19 11:51 02/02/19 11:51 Vital Signs Reviewed: Yes Diagnostics - Vital Signs Vital Signs Temp Pulse Resp BP Pulse Ox 02/02/19 11:51 98.9 F 64 18 144/84 99 - Laboratory Result Diagrams: 02/02/19 13:21 02/02/19 13:21 Lab Statement: Any lab studies that have been ordered have been reviewed, and results considered in the medical decision making process. - EKG 1249 Cardiac Rate: NL - 66bpm EKG Rhythm: Sinus Rhythm ST Segment: Normal Ectopy: None Summary of EKG Findings: EKG at 1249 shows NSR at 66bpm with nml ST, no ectopy, and no STEMI. Course/Dx Course Of Treatment: Ms. Shana had what sounds like a vasovagal episode while at work. She was kept on the monitor while labs were checked including a delayed troponin and d-dimer. Everything was fine and I recommended she follow up with her PCP. - Diagnoses Provider Diagnoses: Near syncope Discharge - Sign-Out/Discharge Documenting (check all that apply): Patient Departure Patient Received Moderate/Deep Sedation with Procedure: No - Discharge Plan Condition: Stable Disposition: HOME Referrals: Belem Garces MD [Primary Care Provider] - Additional Instructions: Please follow up with your primary care provider within the next 2-3 days. Return to the ED with any new or worsening symptoms. - Billing Disposition and Condition Condition: STABLE Disposition: Home - Attestation Statements Document Initiated by Scribe: Yes Documenting Scribe: Lashell Vega Provider For Whom Isabel is Documenting (Include Credential): Andrea Rojas MD. Scribe Attestation: Lashell Thrasher, scribed for Andrea Rojas MD. on 02/02/19 at 1837. Scribe Documentation Reviewed: Yes Provider Attestation: The documentation as recorded by the [email or web address] accurately reflects the service I personally performed and the decisions made by me, Andrea Rojas MD. Status of Scribe Document: Viewed
[2019-02-02 13:10] LABS: Urine Appearance Clear; Urine Bilirubin Negative (Negative); Urine Blood Negative (Negative); Urine Color Colorless; Urine Glucose Negative (Negative); Urine Ketones Negative (Negative); Urine Nitrite Negative (Negative); Urine Protein Negative (Negative); Urine Specific Gravity 1.004 (1.010-1.030); Urine Urobilinogen Negative (Negative)
[2019-02-02 13:38] LABS: ABS Eosinophils 0.1 10^3/ul (0-0.6); ABS Lymphocytes 1.6 10^3/ul (1.0-4.8); ABS Monocytes 0.5 10^3/ul (0-0.8); ABS Neutrophils 3.7 10^3/ul (1.5-7.7); Eosinophil % 1.5 %; Hematocrit 40 % (35-47); Hemoglobin 13.8 g/dL (12.0-16.0); Lymphocyte % 26.7 %; Mean Corpuscular HGB Conc 35 g/dL (31-36); Mean Corpuscular Hemoglobin 31 pg (27-31); Mean Corpuscular Volume 88 fL (80-97); Nucleated Red Blood Cells % 0.1; Platelet Count 230 10^3/uL (150-450); Red Blood Count 4.52 10^6 /uL (3.70-4.87); Red Cell Distribution Width 13 % (10-15); White Blood Count 5.9 10^3/uL (3.5-10.8)
[2019-02-02 13:56] LABS: Albumin 4.4 g/dL (3.2-5.2); Albumin/Globulin Ratio 1.6 (1-3); BUN/Creatinine Ratio 25.8 (8-20); Calcium 9.7 mg/dL (8.6-10.3); EGFR African American 124.8 (>60); EGFR Non-African American 103.2 (>60); Globulin 2.7 g/dL (2-4); Magnesium 2.1 mg/dL (1.9-2.7); Potassium 4.2 mmol/L (3.5-5.0); Total Bilirubin 0.5 mg/dL (0.2-1.0); Total Protein 7.1 g/dL (6.4-8.9)
[2019-02-02 14:02] LABS: HCG Pregnancy 2.61 mIU/mL
[2019-02-02 15:11] LABS: TSH (Thyroid Stimulating Horm) 1.57 mcIU/mL (0.34-5.60)
[2019-02-02 18:28] VITALS: BP 140/88
== END 2019-02-02 18:28 | disposition home or self-care (01) ==
LOC: ED 11:43
DX: R55 Syncope and collapse (principal); Z87.891 Personal history of nicotine dependence
CPT/HCPCS: 36415; 80053; 81003; 83605; 83735; 84443; 84484; 84702; 85025; 93005; 99283

== ENCOUNTER 2019-05-08 10:54 | Emergency (ER) | payer BC, MEDICAID ==
[2019-05-08 11:15] VITALS: BP 140/76
--- NOTE | 2019-05-08 12:31 | UC ---
Back Pain HPI - HPI Summary HPI Summary: WOKE UP A FEW DAYS AGO WITH LEFT FLANK PAIN. RADIATES AROUND TO LEFT PELVIS. HAS SOME URINARY FREQUENCY BUT DENIES DYSURIA, HEMATURIA AND URGENCY. NO NUMBNESS OR TINGLING IN THE LEGS. NO PERSONAL OR FAMILY HISTORY OF KIDNEY STONES. SHE DOES HAVE CHRONIC LOW BACK PAIN BUT STATES THIS FEELS SLIGHTLY DIFFERENT. DENIES ANY RECENT INJURY OR TRAUMA TO THE AREA. NO FEVER OR NAUSEA. NO UNUSUAL ACTIVITY OR HEAVY LIFTING. - History of Current Complaint Chief Complaint: UCBackPain Stated Complaint: BACK PAIN Time Seen by Provider: 05/08/19 11:57 Hx Obtained From: Patient, Family/Career Placement Specialist - Hx Last Menstrual Period: may 2016 Onset/Duration: Sudden Onset, Still Present Timing: Constant Severity Initially: Moderate Severity Currently: Moderate Pain Intensity: 8 Pain Scale Used: 0-10 Numeric Back Pain: Is Discrete @, Radiates To - LEFT GROIN Character: Sharp, Aching Aggravating Factor(s): Movement Alleviating Factor(s): Rest, Position Associated Signs And Symptoms: Positive: Negative - Allergies/Home Medications Allergies/Adverse Reactions: Allergies Allergy/AdvReac Type Severity Reaction Status Date / Time No Known Allergies Allergy Verified 05/08/19 11:15 PMH/Surg Hx/FS Hx/Imm Hx - Additional Past Medical History Additional PMH: CHRONIC BACK PAIN - Surgical History Surgical History: Yes Surgery Procedure, Year, and Place: APPENDECTOMY, CARPAL TUNNEL - Family History Known Family History: Positive: Cardiac Disease - AFib, Other - pulmonary fibrosis, lung CA, alzheimer's disease - Social History Alcohol Use: Rare Substance Use Type: None Smoking Status (MU): Former Smoker Have You Smoked in the Last Year: No Review of Systems All Other Systems Reviewed And Are Negative: Yes Constitutional: Positive: Negative Respiratory: Positive: Negative Cardiovascular: Positive: Negative Gastrointestinal: Positive: Negative Genitourinary: Positive: Frequency, Other - LEFT FLANK PAIN. Negative: Dysuria , Hematuria, Urgency Physical Exam Triage Information Reviewed: Yes Appearance: Well-Appearing, No Pain Distress, Well-Nourished Vital Signs: Initial Vital Signs Temp 97.9 F 05/08/19 11:11 Pulse 78 05/08/19 11:11 Resp 18 05/08/19 11:11 BP 140/76 05/08/19 11:11 Pulse Ox 99 05/08/19 11:11 POC Urine Color Yellow 05/08/19 12:05 POC Urine Clarity Clear 05/08/19 12:05 POC Urine pH 7.0 (5-9) 05/08/19 12:05 POC Ur Specif [place] 1.020 (1.010-1.030) 05/08/19 12:05 POC Urine Protein Negative (Negative) 05/08/19 12:05 POC Ur Glucose (UA) Negative (Negative) 05/08/19 12:05 POC Urine Ketones Negative (Negative) 05/08/19 12:05 POC Urine Blood Negative (Negative) 05/08/19 12:05 POC Urine Nitrite Negative (Negative) 05/08/19 12:05 POC Urine Bilirubin Negative (Negative) 05/08/19 12:05 POC Urine Urobilinogen 1.0 (Negative) 05/08/19 12:05 POC U Leukocyte Esteras Negative (Negative) 05/08/19 12:05 Vital Signs Reviewed: Yes Eyes: Positive: Conjunctiva Clear ENT: Positive: Hearing grossly normal Neck: Positive: Supple Respiratory: Positive: No respiratory distress, No accessory muscle use Cardiovascular: Positive: Pulses Normal Abdomen Description: Positive: Nontender, Soft, CVA Tenderness (L). Negative: CVA Tenderness (R), Distended, Guarding Musculoskeletal: Positive: No Edema Neurological: Positive: Alert Psychological: Positive: Age Appropriate Behavior Skin: Negative: Rashes Diagnostics - Radiology CT ABD/PELVIS W/O CONTRAST Radiology Interpretation Completed By: Radiologist Summary of Radiographic Findings: NO HYDRONEPHROSIS OR NEPHROLITHIASIS. Back Pain Course/Dx - Course Course Of Treatment: CT OF THE PELVIS UNREMARKABLE. URINE UNREMARKABLE. PATIENT HAS A HISTORY OF CHRONIC LOW BACK PAIN. IN THE SETTING OF NEGATIVE DIAGNOSTIC TESTING CURRENT SYMPTOMS ARE LIKELY AN EXACERBATION OF HER CHRONIC BACK PAIN. TRIAL OF MUSCLE RELAXERS AND ANTI-INFLAMMATORIES. FOLLOW-UP IF SYMPTOMS ARE NOT IMPROVING EXPECTED WITH THIS TREATMENT. - Differential Dx/Diagnosis Provider Diagnosis: Low back strain Discharge ED - Sign-Out/Discharge Documenting (check all that apply): Patient Departure All imaging exams completed and their final reports reviewed: Yes - Discharge Plan Condition: Stable Disposition: HOME Prescriptions: Cyclobenzaprine TAB* [Flexeril TAB*] 10 mg PO BID PRN #30 tab PRN Reason: Pain Naproxen [Naproxen 500 mg tab] 500 mg PO BID PRN #30 tablet PRN Reason: Pain Patient Education Materials: Low Back Strain (ED) Forms: *Work Release Referrals: Belem Garces MD [Primary Care Provider] - If Needed Additional Instructions: CT SCAN TODAY UNREMARKABLE. URINE TEST UNREMARKABLE. YOUR SYMPTOMS ARE LIKELY DUE TO MUSCLE STRAIN IN YOUR LOW BACK. REST. HEAT, MASSAGE. TAKE NAPROXEN TWICE DAILY NEEDED FOR PAIN. FLXERIL BEFORE BED. BE SURE TO GO THROUGH SLOW RANGE OF MOTION AND STRETCHING EXERCISES DAILY YOU ARE ABLE TO PREVENT STIFFENING UP AND MAKING THE DISCOMFORT WORSE. GO TO THE ED WITHOUT FAIL IF YOU DEVELOP WORSENING NUMBNESS/TINGLING IN YOUR LEGS, NUMBNESS IN THE GENITAL REGION, LOSS OF BOWEL/BLADDER CONTROL, INTOLERABLE PAIN OR ANY OTHER CONCERNING SYMPTOMS. - Billing Disposition and Condition Condition: STABLE Disposition: Home
[2019-05-08] MEDS ORDERED: Naproxen TAB* 250 MG PO ONE (13:11)
== END 2019-05-08 13:25 | disposition home or self-care (01) ==
LOC: UCEAST 10:54
DX: S39.012A Strain of muscle, fascia and tendon of lower back, initial encounter (principal); R10.9 Unspecified abdominal pain; R35.0 Frequency of micturition; G89.29 Other chronic pain; M54.9 Dorsalgia, unspecified; Z87.891 Personal history of nicotine dependence; X58.XXXA Exposure to other specified factors, initial encounter; Y92.9 Unspecified place or not applicable
CPT/HCPCS: 74176; 81003; 99212; A9270-GY; G0463